=== PATIENT | male | born 1985 | race Caucasian/White ===

== ENCOUNTER 2017-01-09 13:20 | Emergency (ER) | payer BC, OTHER ==
[~2017-01-09] VITALS: Ht 185.4 cm; Wt 120.7 kg
[2017-01-09 13:28] VITALS: TEMP 37.2; Ht 185.4 cm; Wt 120.7 kg
--- NOTE | 2017-01-09 14:46 | EMERGENCY ROOM VISIT NOTE ---
ED Visit Note First contact with patient: 14:24 CHIEF COMPLAINT: knee pain HISTORY OF PRESENT ILLNESS: This 31-year-old male patient presents to the emergency department ambulatory for evaluation of right knee pain and swelling. The patient denies any specific injury. He states that he noticed stiffness in his right knee yesterday. He states that this morning he had significant swelling to the knee. He states that his pain is severe and rated a 9/10. He went to the emergency department this morning. The patient denies any other injuries besides their knee. The patient admits significant swelling but no bruising. There is pain diffusely over the knee. They rate the pain as sharp and 9/10. The patient states they are not able to walk on it. No numbness or tingling. No previous injuries to this knee. No ankle, foot or hip pain. REVIEW OF SYSTEMS: A 6 system review of systems was completed with positives and pertinent negatives listed in the HPI. ALLERGIES: No known drug allergies MEDICATIONS: None PMH: None SOCIAL HISTORY: The patient is a smoker PHYSICAL EXAM: Vital Signs: Reviewed Nurse's notes, vital signs stable. GENERAL : Is a 31-year-old male, no acute distress, but appears in pain, well-developed , well-nourished. MENTAL STATUS: Alert, oriented to person place and time, and cooperative. MUSCULOSKELETAL: The right knee is significantly swollen. There is no ecchymosis. There is very large joint effusion present. The patient is tender diffusely over the knee. There is no significant joint line tenderness. The patella does not subluxate. Range of motion is decreased secondary to pain. Strength of the quads and hamstrings is 5/5. There is no significant erythema or warmth. The foot and toes are warm and well-perfused. Dorsalis pedis pulse 2+. Sensation to pain and light touch is intact. Capillary refill less than 2 seconds. EMERGENCY DEPARTMENT COURSE: I examined the patient. The patient has a very large joint effusion to the right knee. He has no fever. It is not significantly warm and is without erythema. I was able to review the joint aspiration from [facility] earlier today. The white blood cell count was 22,068. The red blood cell count was 40,920. I suspect that this represents an inflammatory effusion as opposed to septic effusion. The patient was hoping to have an MRI of the knee. I advised him that the insurance company would not likely cover it as it would not change the treatment outcome from the emergency department. He knowledge his understanding. He will be given a prescription for OxyIR. He was given OxyIR in the emergency department. I did notify orthopedics of the case. They suggest doing an aspiration for cell count. However, I was able to get the results from [facility] this morning. The results from this morning suggested inflammatory process. The patient was placed in a knee immobilizer under my direction and the position was satisfactory. The patient was instructed on the use of crutches. He has an appointment with orthopedics in the morning The patient was discharged home in good condition. He will be given a prescription for OxyIR. He should return with any redness, warmth, fevers or generalized worsening symptoms Problem List Medical Problems: (1) A-fib Status: Chronic (2) Abdominal pain Status: Resolved (3) Acute bronchitis Status: Resolved (4) Back pain Status: Resolved (5) Back pain Status: Resolved (6) Chest pain Status: Resolved (7) Chest pain Status: Resolved (8) Chest wall pain Status: Resolved (9) Chest wall pain Status: Resolved (10) Cough Status: Resolved (11) Diarrhea Status: Resolved (12) Otitis media, left Status: Resolved Surgical Problems: (1) Hx of cholecystectomy Status: Resolved Current/Historical Medications Scheduled PRN Oxycodone Ir (Roxicodone Ir), 1-2 TAB PO Q4H PRN for Pain Allergies Coded Allergies: No Known Allergies (Unverified , 01/09/17) Vital Signs Date Time Temp Pulse Resp B/P (MAP) Pulse Ox O2 Delivery O2 Flow Rate FiO2 01/09/17 15:45 96 18 145/88 96 Room Air 01/09/17 13:28 37.2 107 18 156/90 96 Room Air Medications Administered Medications (Trade) Dose Ordered Sig/Winnie Route Start Time Stop Time Status Last Admin Dose Admin Oxycodone HCl (Roxicodone Immediate Rel Tab) 10 mg NOW STAT PO 01/09/17 14:50 01/09/17 14:51 DC 01/09/17 15:18 10 MG Departure Information Impression Primary Impression: Knee effusion, right Dispostion Home / Self-Care Condition GOOD Prescriptions Oxycodone Ir (Roxicodone Ir) 5 Mg Tab 1-2 TAB PO Q4H Y for Pain, #30 TAB For Initial Treatment Prov: Laquita Valdez PA-C 01/09/17 Referrals No Doctor, Assigned (PCP) Alejandro Garces D.O. Patient Instructions ED Effusion Knee, My [facility] Additional Instructions Continue the Keflex and naproxen Oxy IR 1-2 tablets every 4-6 hrs as needed for worse pain. No driving or alcohol use with Oxy IR. Wear the immobilizer when up and about and use the crutches to assist in ambulation Follow-up with orthopedics in the morning as scheduled Return with any redness, warmth, fevers or generalized worsening symptoms
[2017-01-09] MEDS ORDERED: OXYCODONE HCL IR 5 MG TAB (IMMEDIATE RELEASE) PO STA (14:50)
[2017-01-09] MEDS ORDERED: OXYC1TAB3 PO (15:29)
[2017-01-09 15:45] VITALS: BP 145/88; PULSE 96; O2SAT 96
== END 2017-01-09 15:54 | disposition home or self-care (01) ==
LOC: C.EDB 13:22 → C.EDD 15:54
DX: M25.461 Effusion, right knee (principal); I48.91 Unspecified atrial fibrillation; F17.210 Nicotine dependence, cigarettes, uncomplicated